=== PATIENT | female | born 1980 | race Hispanic/Latino ===

== ENCOUNTER 2020-12-13 16:49 | Inpatient (IN) | payer OTHER, SELFPAY ==
--- NOTE | 2020-12-13 15:04 | PC.NURSE ---
Pt arrived to ED stating that she was sent to ED to get a blood transfusion by Dr. Woodall. Called charge nurse Shelbie that stated no one had called her and for me to call Jarvis Albert, called Jarvis Klein and was told that she had no call placed to her and to call [facility]. Called [facility] and was told by RN that they were informed that pt was very symptomatic but that no one was going to be there in a bit and for us to check pt into ED. Informed [facility] nurse that pt was able to walk into ED with no help carrying 4 bags and a fountain soda. Pt also denied any symptoms at that time. Pt now in waiting room wanting to know why she is still waiting and why we took back a COVID pt that was SOB before her. Pt on phone with talking loudly with a room full of pts. Stating that we told her she was bad enough to be brought back right way. This was never said to pt. Pt is also stating that we are refusing to call and get orders for pt. Informed pt that we cant just call in orders that a will have to see her.
[2020-12-13 15:12] VITALS: BP 175/77; PULSE 100; RESP 18; TEMP 36.6; O2SAT 100
--- NOTE | 2020-12-13 15:17 | PC.NURSE ---
Pt inquiring about if we are going to wipe down that chair that a COVID + patient sat in. Informed pt that we typically dont do that in between pts. 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 I informed pt that i could call housekeeping if she would like me too. Pt states i guess I will call about this as well
[2020-12-13 15:48] LABS: Hematocrit 25.4 % (37.0-47.0)
[2020-12-13 15:53] LABS: Hemoglobin 6.3 g/dL (12.0-15.0)
--- NOTE | 2020-12-13 15:54 | PC.NURSE ---
lAb called with a critical hemoglobin 6.3
[2020-12-13 16:45] VITALS: BMI 39.9
--- NOTE | 2020-12-13 20:43 | PC.NURSE ---
PAGE OUT TO [employer] [facility]. REQUEST ORDERS FOR PT AT THIS TIME.
[2020-12-13 20:58] VITALS: BP 148/60; PULSE 93; RESP 16; TEMP 36.1; O2SAT 100
[2020-12-13] MEDS: ACETAMINOPHEN 325 MG TABLET 650 MG PO (21:17)
--- NOTE | 2020-12-13 23:31 | PC.NURSE ---
LAB CALLED REGARDING STAT H&H AND PRBCs ORDER. AWAIT RESULTS.
[2020-12-13 23:58] VITALS: BP 130/62; PULSE 83; RESP 16; TEMP 36.8; O2SAT 99
[2020-12-14] VITALS (9 sets, daily range): BP systolic 112–134; BP diastolic 61–72; PULSE 71–77; RESP 16–18; TEMP 36.7–36.9; O2SAT 98–100
[2020-12-14 06:06] LABS: Hematocrit 31.1 % (37.0-47.0); Hemoglobin 8.6 g/dL (12.0-15.0); Mean Corpuscular HGB Conc 27.7 g/dl (32-36); Mean Corpuscular Hemoglobin 18.1 pg (26-34); Mean Corpuscular Volume 65.3 fl (80-100); Mean Platelet Volume 9.6 fl (7.4-10.4); Platelet Count Result 384 k/mm3 (150-375); Red Blood Count 4.76 M/mm3 (4.2-5.4); Red Cell Distribution Width 25.2 % (11.5-14.5); White Blood Count 9.2 K/mm3 (4.5-10.0)
--- NOTE | 2020-12-14 12:14 | PM.IMHP ---
H&P: HPI History of Present Illness Date/Time: 12/14/20 12:14 40y/o A1 with history of menorrhagia. Patient was on progesterone therapy prior. However, patient has not been seen or taken medications since 2019. Patient9 months ago began to have 2 cycles per month lasting for 10 days and were heavy Chief Complaint: fatigue,irregular and heavy bleeding Review of Systems Constitutional: Constitutional: Reports fatigue, Reports headache(s) and Reports lethargy PMFSH Past Medical History Medical History (Updated 12/14/20 @ 12:27 by Phoenix Taylor MD) Anemia Menometrorrhagia Surgical History Surgical History (Updated 12/14/20 @ 12:23 by Phoenix Taylor MD) History of hysteroscopy Family History Family History Mother Diabetes mellitus Hypertension Chronic obstructive pulmonary disease Father Diabetes mellitus Social History Social History Smoking packs per day: 0.5 Smoking cigarettes per day: 10.0 Smoking status: Former smoker Tobacco type: cigarettes Smoking end date: 12/13/20 Alcohol intake: current Drinks per week: 1 Substance use: never Spiritual care concerns: No Meds Home Medications and Allergies Home Medications Medication Instructions Recorded Confirmed Type No Home Medications 12/13/20 12/13/20 History tranexamic acid [Lysteda] 650 mg PO TID #30 tablet 12/14/20 Rx Allergies Allergy/AdvReac Type Severity Reaction Status Date / Time No Known Allergies Allergy Unverified 11/16/16 07:32 Vital Signs Vital Signs - 24 hr 12/13/20 15:12 12/13/20 20:58 12/13/20 23:58 Temperature 36.6 C 36.1 C L 36.8 C Pulse Rate 100 93 83 Respiratory Rate 18 16 16 Blood Pressure 175/77 H 148/60 H 130/62 Pulse Oximetry 100 100 99 12/14/20 00:13 12/14/20 01:13 12/14/20 02:13 Temperature 36.9 C 36.7 C 36.8 C Pulse Rate 76 73 71 Respiratory Rate 18 18 16 Blood Pressure 120/61 134/62 113/64 Pulse Oximetry 100 100 98 12/14/20 02:35 12/14/20 02:51 12/14/20 02:55 Temperature 36.8 C 36.8 C 36.8 C Pulse Rate 71 77 77 Respiratory Rate 16 16 16 Blood Pressure 113/64 112/65 112/65 Pulse Oximetry 98 98 98 12/14/20 03:51 12/14/20 04:51 12/14/20 04:57 Temperature 36.8 C 36.9 C 36.9 C Pulse Rate 75 73 73 Respiratory Rate 16 16 16 Blood Pressure 126/72 125/64 125/64 Pulse Oximetry 100 98 98 Exam Const: General: cooperative Nutritional Appearance: obese Orientation/consciousness: patient oriented x3 Resp: Auscultation: clear to auscultation bilaterally Cardio: Rate: regular rate GI: Inspection: normal to inspection GI Palp: Yes Soft to palpation : External Female Exam: normal external appearance H&P: Results Labs Labs: Short CBC 12/13/20 12/14/20 Range/Units 15:22 05:49 WBC 9.2 (4.5-10.0) K/mm3 Hgb 6.3 L* 8.6 L (12.0-15.0) g/dL Hct 25.4 L 31.1 L (37.0-47.0) % Plt Count 384 H (150-375) k/mm3 Assessment and Plan Assessment and plan (1) Menometrorrhagia: Code(s): N92.1 - Excessive and frequent menstruation with irregular cycle Status: Acute Assessment and Plan: plans pelvic ultrasound and hysteroscopy with endometrial biopsy with Dr. Woodall. will start Lysteda with next cycle. follow up in office in 1 week. d/c home. (2) Anemia: Code(s): D64.9 - Anemia, unspecified Status: Acute Assessment and Plan: s/p 2 units of packed RBCs feels much better. denies bleeding. will continue with iron supplements
== END 2020-12-14 12:20 | disposition home or self-care (01) | DRG 761 ==
PROVIDERS: Emergency Medicine; Admitting Provider Obstetrics & Gynecology Gynecology; PCP Internal Medicine; Visit Provider Obstetrics & Gynecology
DX: N92.1 Excessive and frequent menstruation with irregular cycle (principal); D64.9 Anemia, unspecified; Z87.891 Personal history of nicotine dependence
CPT/HCPCS: 36415; 36430; 85014; 85018; 85027; 86850; 86900; 86901; 86920; A9270; P9016

== ENCOUNTER → 2020-12-17 13:29 | Outpatient (CLI) | payer OTHER, SELFPAY ==
--- NOTE | ~2020-12-17 | US_ITS ---
EXAMINATION: US transvaginal DATE: 12/17/2020 13:59 INDICATION: Excessive and frequent consideration TECHNIQUE: Multiple endovaginal sonographic images of the pelvis were obtained. COMPARISON: None. FINDINGS: The uterus measures 10.5 x 6.1 x 7.4 cm. There is a 3.3 x 2.9 cm hypoechoic mass of the lef t uterus which has the appearance of a subserosal fibroid. The endometrial complex measures 29 mm. Th e left ovary is not visualized however no left adnexal abnormality is seen. The right ovary measures 3.5 x 2.2 x 3.3 cm. There is normal vascular flow in the right ovary. There is no free fluid in the p melinda. IMPRESSION: 1. Endometrial thickening which may be due to hyperplasia, polyp, or malignancy. Endometrial sampling is recommended. Reviewed, dictated and finalized at location B. IMPRESSION: 1. Endometrial thickening which may be due to hyperplasia, polyp, or malignancy . Endometrial sampling is recommended.
== END ==
PROVIDERS: Visit Provider Nurse Practitioner
DX: N92.1 Excessive and frequent menstruation with irregular cycle (principal); R93.89 Abnormal findings on diagnostic imaging of other specified body structures
CPT/HCPCS: 76830

== ENCOUNTER → 2021-02-06 02:53 | Outpatient (CLI) | payer OTHER, SELFPAY ==
[2021-02-06 19:47] LABS: SARS-CoV-2 RNA PCR Negative
== END ==
PROVIDERS: Visit Provider Obstetrics & Gynecology Gynecology
DX: Z01.812 Encounter for preprocedural laboratory examination (principal); Z20.822 Contact with and (suspected) exposure to COVID-19
CPT/HCPCS: C9803; U0003; U0005

== ENCOUNTER 2021-02-10 00:43 | Day surgery (SDC) | payer OTHER, SELFPAY ==
[2021-02-06 09:09] VITALS: BMI 41.1
--- NOTE | 2021-02-06 09:20 | PC.NURSE ---
Report to the Outpatient Waiting Room, entrance under the green pavilion located off [facility], at time 0630 on date 02/10/21. OR Time: 0830. - You and your visitor will be asked a series of questions to screen for COVID 19 for your protection. - A mask is required within the hospital. - Only one visitor is allowed at this time. Patient visitors will be guided where to wait when not with patient. Preoperative COVID Testing Requirements: No COVID Test needed if: (proof is required; if not received patient will have Rapid Test prior to entry) - Patient has received COVID Vaccine at least 14 days prior to procedure date or - Patient has positive COVID test result within last 90 days of surgery date. COVID Test needed if above criteria is not met If not COVID vaccinated a COVID test must be conducted within 72 hours of surgery and patient is asked to isolate self from time of testing until procedure. You will go to the [facility] for your COVID testing. The [facility] is located at the corner of [address] [facility]. COVID TEST 02/06 AT 0730 You will only be called if COVID results are positive and your surgeon may reschedule your elective surgery date. Patients may have clear liquids (water, carbonated beverages, clear teas, apple juice) until 3 hours prior to surgery with a maximum of 20 ounces. - No food from midnight until time of surgery - Infants may have breast milk until 4 hours before surgery, infant formula 6 hours prior to surgery. - Children will be allowed to drink immediately following surgery. If applicable, please bring a bottle or sippy cup to assist with drinking. Juice, water, soda, and popsicles are readily available. For infants on formula, please bring formula the day of surgery. Pacifiers are allowed. Take the following medications with a SIP of water the morning of surgery: NONE Medications to discontinue per physician: VITAMINS/SUPPLEMENTS Date to take last dose: 02/06/21 Please no make-up, nail sri lankan, hairspray, perfume, deodorant, or body powder the day of surgery. No jewelry (including any body piercings) or valuables the day of surgery, leave them at home. Please take a shower or bath the night before, or the morning of, surgery with an antibacterial soap. Wear comfortable, loose fitting clothing. Children are encouraged to wear pajamas. - Jewelry must be removed prior to entering the operating room. Rings and piercings that are not removed may be cut off. - The hospital will not accept responsibility for valuables. - Please leave all valuables, including medications, at home the day of surgery. If you are going home after surgery, a licensed class b driver must drive you home. - NO public transportation without another adult. - We recommend that an adult stay with you for 24 hours following discharge. - We also recommend that you do not drive, make important decision, drink alcoholic beverages, or take any drugs that were not prescribed by your health care provider for at least 24 hours after your discharge time. For Pediatric surgeries, we recommend two adults accompany the child home (only one inside the building at this time). Follow any additional instructions given to you from your surgeon. Telephone instructions given to ANGELA ACOSTA and asked if any additional questions and then verbalized understanding. Patient advised to call surgeon office or pre surgery nurse liaison [phone] if any additional questions.
--- NOTE | 2021-02-10 07:18 | WPDHPUPDATE1 ---
History and Physical Update Update Date/Time: 02/10/21 07:18 History and Physical has been reviewed, including an updated exam of the patient. There are NO changes in the patient's condition. Risks, benefits, and alternatives have been discussed and questions answered. Patient agrees to proceed with procedure.
--- NOTE | 2021-02-10 07:18 | PM.HPGS ---
History of Present Illness History of Present Illness Consent: Risks, benefits, and alternatives have been discussed and questions answered. Patient agrees to proceed with procedure. Chief complaint: metrorrhagia and anemia Narrative: Ame Vaughn is a 40 year old female with prolonged heavy cycles. Patient a similar situation in 2017 and polyps were found. Patient with profound anemia of 6.3 and December 12, 2020. Patient with shortness of breath and lightheadedness and therefore received 2units of packed red blood cells. She was given Lysteda to utilized for cycles until hysteroscopy. It is recommended to proceed with D&C hysteroscopy. Risks of infection, bleeding, perforation, and possible pathology are reviewed. Patient voices understanding and agrees to proceed. Review of Systems Review of Systems: not repeated day of surgery; patient states no changes in status Constitutional: Constitutional: Reports fatigue PMFSH Past Medical History Medical History (Updated 02/10/21 @ 07:23 by Dalia Woodall MD) Anemia Diabetes Elevated cholesterol Menometrorrhagia (normal spontaneous vaginal delivery) x3 Surgical History Surgical History (Updated 02/10/21 @ 07:23 by Dalia Woodall MD) History of hysteroscopy 2016 with polyps History of surgical removal of ganglion cyst Left hand 1994 Family History Family History Mother Diabetes mellitus Hypertension Chronic obstructive pulmonary disease Father Diabetes mellitus Social History Social History Smoking packs per day: 0.75 Smoking cigarettes per day: 15.0 Years smoked: 15 Smoking pack-years: 11.25 Smoking status: Former smoker Tobacco type: cigarettes Smoking end date: 02/15/10 Alcohol intake: never Drinks per week: 1 Substance use: never Substance use type: does not use Living arrangements: with family Spiritual care concerns: No Meds Home Medications and Allergies Home Medications Medication Instructions Recorded Confirmed Type tranexamic acid [Lysteda] 650 mg PO TID #30 tablet 12/14/20 02/06/21 Rx ferrous sulfate [Iron (ferrous 325 mg PO BID 02/06/21 02/06/21 History sulfate)] Allergies Allergy/AdvReac Type Severity Reaction Status Date / Time No Known Allergies Allergy Unverified 02/10/21 07:22 Exam Const: General: healthy appearing and alert Orientation/consciousness: patient oriented x3 Resp: Effort & Inspection: normal respiratory effort Auscultation: clear to auscultation bilaterally Cardio: Rate: regular rate Rhythm: regular rhythm GI: GI Palp: Yes Soft to palpation, No Tenderness to palpation present (GI) and No Palpable mass present : External Female Exam: normal external appearance Speculum Exam - Vagina: normal appearance of the vagina and normal vaginal discharge Speculum Exam - Cervix: normal appearance of the cervix Bimanual exam- vagina & uterus: uterine size normal and consistency normal Bimanual Exam- Adnexa, other: normal adnexae and No adnexal tenderness Neuro: General: patient oriented x3 Assessment and Plan Assessment and plan (1) Menometrorrhagia: Code(s): N92.1 - Excessive and frequent menstruation with irregular cycle Status: Acute Assessment and Plan: Plan is to proceed with D&C hysteroscopy (2) Anemia: Code(s): D64.9 - Anemia, unspecified Status: Acute
[2021-02-10] MEDS: ACETAMINOPHEN 500 MG TABLET 1000 MG PO (07:26)
--- NOTE | 2021-02-10 07:32 | WPDANESEPPF ---
Anes - Initial Pre Proc Eval Procedure: Operation Date: 02/10/21 08:30 Proposed Procedures p Hysteroscopy Dilation and Curettage - Dalia Woodall MD Date/Time: 02/10/21 07:32 Surgeon: Dalia Woodall MD Pre Op Diagnosis: metrorrhagia and anemia Patient Data Age: 40 Gender: F Height: 1.63 m Weight: 108.86 kg Allergies Allergy/AdvReac Type Severity Reaction Status Date / Time No Known Allergies Allergy Unverified 02/10/21 07:22 Home Medications Medication Instructions Recorded Confirmed Type tranexamic acid [Lysteda] 650 mg PO TID #30 tablet 12/14/20 02/06/21 Rx ferrous sulfate [Iron (ferrous 325 mg PO BID 02/06/21 02/10/21 History sulfate)] Patient hx anesthesia problems: none Family hx anesthesia problems: none Results Review: All pre-operative results and documents have been reviewed as part of the pre-operative evaluation. PMFSH Past Medical History Medical History Anemia Diabetes Elevated cholesterol Menometrorrhagia (normal spontaneous vaginal delivery) x3 Surgical History Surgical History History of hysteroscopy 2017 with polyps History of surgical removal of ganglion cyst Left hand 1994 Family History Family History Mother Diabetes mellitus Hypertension Chronic obstructive pulmonary disease Father Diabetes mellitus Social History Social History Smoking packs per day: 0.75 Smoking cigarettes per day: 15.0 Years smoked: 15 Smoking pack-years: 11.25 Smoking status: Former smoker Tobacco type: cigarettes Smoking end date: 02/15/10 Alcohol intake: never Drinks per week: 1 Substance use: never Substance use type: does not use Living arrangements: with family Spiritual care concerns: No Anes - Eval Final PreProcedure Day of Procedure 02/10/21 07:32 Patient weight: morbidly obese Heart: regular rate and rhythm Lungs: clear to auscultation Airway: Mallampati scale class II Neurological: alert and oriented Last oral intake: >/= 8 hours ASA classification: III Emergent: no Anesthetic plan: proceed Anesthesia type and monitoring: general GIVS and standard monitoring Results Review: All pre-operative results and documents have been reviewed as part of the pre-operative evaluation. Informed Consent: The patient's anesthetic plan and its attendant risks and benefits were discussed with the patient/family/POA. Questions were solicited and answers provided to the satisfaction of the patient/family/POA.
[2021-02-10] MEDS: LACTATED RINGERS 1,000 ML 30 ML IV CONT (07:35)
[2021-02-10 07:39] VITALS: BP 147/89; PULSE 92; TEMP 36.1; O2SAT 97
[2021-02-10 07:44] LABS: Hematocrit 42.2 % (37.0-47.0); Hemoglobin 13.2 g/dL (12.0-15.0)
[2021-02-10] MEDS: KETOROLAC 30 MG/ML VIAL (*BKC) IV PUSH (08:33)
--- NOTE | 2021-02-10 08:40 | W.PM.PROC2 ---
Procedure Note - Detailed Date of Procedure 02/10/21 Pre-op Diagnosis metrorrhagia and anemia Post-op Diagnosis same Procedure Performed D&C hysteroscopy Surgeon Dalia Woodall MD Anesthesia MAC and local Findings Uterus sounds to 10cm and appears grossly normal Description of Procedure The patient was taken to the operating room and placed under anesthesia in the dorsal lithotomy position. She was prepped and draped in usual sterile fashion. [place] speculum was placed in the vagina and the cervix is grasped on the anterior lip with a tenaculum. The cervix is injected in each quadrant with lidocaine. The uterus is sounded to 10cm. The cervix is serially dilated to an 8 Hegar. The diagnostic hysteroscope was placed with no abnormalities noted. The hysteroscope was removed. The medium sharp curette is used to sharply curette the endometrium until a good uterine cry was noted in all areas. Moderate amount of material was obtained. All instruments are removed. Sponge, needle, and instrument counts are correct per the OR staff. Patient is awakened from anesthesia and taken to recovery in stable condition. Estimated Blood Loss 5 Drains No Packing No Pathology yes (Endometrial curettings) Complications No immediate complications Condition stable Disposition PACU
[2021-02-10 08:50] VITALS: BP 112/70; PULSE 88; RESP 16; O2SAT 92
[2021-02-10 09:25] VITALS: BP 110/69; PULSE 74; RESP 14
== END 2021-02-10 09:40 | disposition home or self-care (01) ==
PROVIDERS: PCP Internal Medicine; Visit Provider Obstetrics & Gynecology Gynecology
PROC: 0U5B8ZZ Destruction of Endometrium, Via Natural or Artificial Opening Endoscopic (ICD-10-PCS; CPT 58563; principal; 2021-02-10 08:30)
DX: N92.0 Excessive and frequent menstruation with regular cycle (principal); D64.9 Anemia, unspecified; E11.9 Type 2 diabetes mellitus without complications; E78.00 Pure hypercholesterolemia, unspecified; Z87.891 Personal history of nicotine dependence; E66.01 Morbid (severe) obesity due to excess calories; Z68.41 Body mass index [BMI] 40.0-44.9, adult
CPT/HCPCS: 58558; 36415; 85014; 85018; 88305; A9270; C9803; J1885; J2250; J2704; J3010; J7030; J7120; U0003; U0005

== ENCOUNTER 2021-03-25 12:31 | Outpatient (CLI) | payer OTHER, SELFPAY ==
[2021-03-25 13:22] LABS: Hematocrit 38.9 % (37.0-47.0); Hemoglobin 12.8 g/dL (12.0-15.0); Mean Corpuscular HGB Conc 32.9 g/dl (32-36); Mean Corpuscular Hemoglobin 26.4 pg (26-34); Mean Corpuscular Volume 80.2 fl (80-100); Mean Platelet Volume 10.7 fl (7.4-10.4); Platelet Count Result 298 k/mm3 (150-375); Red Blood Count 4.85 M/mm3 (4.2-5.4); Red Cell Distribution Width 14.3 % (11.5-14.5); White Blood Count 12.4 K/mm3 (4.5-10.0)
== END 2021-03-25 12:32 | disposition home or self-care (01) ==
LOC: ANHLAB 12:34
PROVIDERS: PCP Internal Medicine; Visit Provider Obstetrics & Gynecology Gynecology
DX: N92.0 Excessive and frequent menstruation with regular cycle (principal)
CPT/HCPCS: 36415; 85027

== ENCOUNTER → 2021-04-07 10:14 | Outpatient (CLI) | payer OTHER, SELFPAY ==
--- NOTE | ~2021-04-07 | MM_ITS ---
EXAMINATION: MM screening candida BI w anyi HISTORY: Screening mammogram; baseline examination TECHNIQUE: Craniocaudal and mediolateral oblique 3-D tomosynthesis images were obtained and synthetic 2-D images were generated. CAD analysis was submitted and interpreted. COMPARISON: No prior mammogram is available for comparison at this institution. BREAST PARENCHYMAL COMPOSITION: The breasts are heterogeneously dense, which may obscure small masses . FINDINGS: There is no evidence of suspicious mass, calcification, or architectural distortion to sugg est malignancy in either breast. There has been no suspicious interval change. IMPRESSION: 1. No mammographic evidence of malignancy. 2. Recommend routine screening mammography in one year. BI-RADS Category 1: Negative Reviewed, dictated and finalized at location A. LE GRADER
== END ==
PROVIDERS: Visit Provider Nurse Practitioner
DX: Z12.31 Encounter for screening mammogram for malignant neoplasm of breast (principal)
CPT/HCPCS: 77063; 77067

== ENCOUNTER 2023-08-25 13:18 | Outpatient (CLI) | payer OTHER, SELFPAY ==
--- NOTE | 2023-08-25 13:32 | ECG_ITS ---
Test Date: 2023-08-25 13:45:43 Measurements Intervals Samson Rate: 84 P: 23 NM: 161 QRS: -16 QRSD: 89 T: 5 QT: 356 QTc: 421 Interpretive Statements SINUS RHYTHM BORDERLINE R WAVE PROGRESSION, ANTERIOR LEADS BORDERLINE T WAVE ABNORMALITY- ANT/INF LEADS BASELINE ARTIFACT- I, II, III, AVR, AVL, AVF BORDERLINE ECG No previous ECG available for comparison Electronically Signed On 08-25-2023 14:24:49 CDT by Jitendra Hale D.O.
[2023-08-25 14:14] LABS: Anion Gap 9 mmol/L (4-12); Blood Urea Nitrogen 10 mg/dL (7-17); Calcium 8.8 mg/dL (8.4-10.2); Carbon Dioxide 27 mmol/L (22-30); Chloride 103 mmol/L (98-107); Estimated Glomerular Filt Rate > 60; Glucose 157 mg/dL (65-110); Potassium 3.9 mmol/L (3.4-5.0); Sodium 139 mmol/L (137-145)
[2023-08-25 14:33] LABS: Hemoglobin 6.9 g/dL (12.0-15.0)
== END 2023-08-25 13:19 | disposition home or self-care (01) ==
PROVIDERS: Anesthesiology; PCP Emergency Medicine; Visit Provider Obstetrics & Gynecology Gynecology
DX: Z01.818 Encounter for other preprocedural examination (principal); N92.1 Excessive and frequent menstruation with irregular cycle; D64.9 Anemia, unspecified; E11.9 Type 2 diabetes mellitus without complications
CPT/HCPCS: 36415; 80048; 85014; 85018; 93005

== ENCOUNTER 2023-08-25 16:41 | Outpatient (CLI) | payer OTHER, SELFPAY | END 2023-08-25 16:42 | disposition home or self-care (01) | LOC: ANHLAB 16:44 | PROVIDERS: PCP Emergency Medicine; Visit Provider Obstetrics & Gynecology Gynecology | DX: R71.0 Precipitous drop in hematocrit (principal) | CPT/HCPCS: 36415; 80048; 85014; 85018; 86850; 86900; 86901; 93005 ==

== ENCOUNTER 2023-08-26 11:34 | Outpatient (RCR) | payer OTHER, SELFPAY ==
[2023-08-26] VITALS (8 sets, daily range): BP systolic 120–133; BP diastolic 57–77; PULSE 71–86; RESP 18–20; TEMP 36.5–37.2; O2SAT 98–100
== END 2023-11-24 23:59 | disposition home or self-care (01) ==
LOC: ANHCPCTRAN 11:34
PROVIDERS: PCP Emergency Medicine; Visit Provider Obstetrics & Gynecology Gynecology
DX: D50.9 Iron deficiency anemia, unspecified (principal)
CPT/HCPCS: 36415; 36430; 86923; J7050; P9016

== ENCOUNTER 2023-08-30 11:50 | Inpatient (IN) | payer OTHER, SELFPAY ==
[2023-08-20 11:18] VITALS: BMI 39.5
--- NOTE | 2023-08-20 11:28 | PC.NURSE ---
Report to the Outpatient Waiting Room, entrance under the green pavilion located off [facility], at time _0700_ on date _[id number]_. Planned Procedure Time: _0900_. Time changes happen often and if your time is changed the preop area will call you the afternoon before. - You and your visitor will be asked to self-screen and do not enter if you have any COVID symptoms. - A mask is optional within the hospital at this time. Patients may have clear liquids (water, carbonated beverages, clear teas, apple juice) until 3 hours prior to surgery with a maximum of 20 ounces. - No food from midnight until time of surgery Take the following medications with a SIP of water the morning of surgery: _None DO NOT STOP ANY OF YOUR OTHER PRESCRIPTION MEDICATIONS PRIOR TO SURGERY ?EXCEPT THE FOLLOWING Medications to discontinue per physician ____None Please ask Dr Woodall's office if Advil ok to take up to surgery. Date to take last dose Please no make-up, nail french, hairspray, perfume, deodorant, or body powder the day of surgery. No jewelry (including any body piercings) or valuables the day of surgery, leave them at home. Please take a shower or bath the night before, or the morning of, surgery with an antibacterial soap. Wear comfortable, loose fitting clothing. - Jewelry must be removed prior to entering the operating room. Rings and piercings that are not removed may be cut off. - The hospital will not accept responsibility for valuables. - Please leave all valuables, including medications, at home the day of surgery. If you are going home after surgery, a licensed otr van cdl truck driver must drive you home. - NO public transportation without another adult if you receive anesthesia. - We recommend that an adult stay with you for 24 hours following discharge. - We also recommend that you do not drive, make important decision, drink alcoholic beverages, or take any drugs that were not prescribed by your health care provider for at least 24 hours after your discharge time. Follow any additional instructions given to you from your surgeon. If you or anyone in your household have experienced Covid symptoms in the past week, please notify your surgeon or the nurse liaison at the phone number below for possible testing. Telephone instructions given to __Ame___and asked if any additional questions and then verbalized understanding. Patient advised to call surgeon office or pre surgery nurse liaison [phone] if any additional questions.
[2023-08-30] VITALS (21 sets, daily range): BP systolic 141–168; BP diastolic 58–82; PULSE 69–84; RESP 14–24; TEMP 35.8–37.2; O2SAT 91–100
[2023-08-30] MEDS: ACETAMINOPHEN 500 MG TABLET 1000 MG PO (06:18)
[2023-08-30] MEDS: LACTATED RINGERS 1,000 ML 30 ML IV CONT ×2 (06:25→09:53)
[2023-08-30] MEDS: KETOROLAC 15 MG/ML VIAL (*BKC) IV PUSH (06:28)
[2023-08-30 06:36] LABS: Glucose Point of Care 121 mg/dl (65-105)
--- NOTE | 2023-08-30 07:05 | WPDHPUPDATE1 ---
History and Physical Update Update Date/Time: 08/30/23 07:05 History and Physical has been reviewed, including an updated exam of the patient. There are NO changes in the patient's condition. Risks, benefits, and alternatives have been discussed and questions answered. Patient agrees to proceed with procedure.
--- NOTE | 2023-08-30 07:06 | PM.IMHP ---
H&P: HPI History of Present Illness Date/Time: 08/30/23 07:06 Chief Complaint: Menorrhagia with anemia Narrative: The patient is a 43 year old with chronic menorrhagia with anemia and fibroids. Patient was originally scheduled for hysterectomy last summer. Due to uncontrolled diabetes the surgery was canceled. Patient rescheduled after medical clearance was obtained. The patient has had several transfusions due to the anemia. Risks of infection, bleeding, injury to internal organs ( bowel, bladder, ureters, ovaries), DVT, and anesthesia are reviewed. The patient voiced understanding and agrees to proceed. Review of Systems Review of Systems: not repeated day of surgery; patient states no changes in status PMFSH Past Medical History Medical History (Updated 08/30/23 @ 07:13 by Dalia Woodall MD) Anemia Diabetes Elevated cholesterol Menometrorrhagia (normal spontaneous vaginal delivery) x3 Surgical History Surgical History (Updated 08/30/23 @ 07:12 by Dalia Woodall MD) History of hysteroscopy 2016 with polyps, 2020 History of surgical removal of ganglion cyst Left hand 1994 Family History Family History Mother Diabetes mellitus Hypertension Chronic obstructive pulmonary disease Father Diabetes mellitus Social History Social History Smoking packs per day: 0.75 Smoking cigarettes per day: 15.0 Years smoked: 15 Smoking pack-years: 11.25 Smoking status: Former smoker Tobacco type: cigarettes Smoking end date: 02/15/10 Alcohol intake: never Drinks per week: 1 Substance use: never Substance use type: does not use Living arrangements: with family Gender identity (if verbalized by the patient): Female Sexual Orientation (if Verbalized by the Patient): Straight or Heterosexual Spiritual care concerns: No Meds Home Medications and Allergies Home Medications Medication Instructions Recorded Confirmed Type ferrous sulfate 325 mg (65 mg 325 mg PO BID 02/06/21 08/30/23 History iron) tablet (Iron (ferrous sulfate)) ibuprofen 200 mg tablet (Advil) 400 mg PO Q6H PRN Pain 08/20/23 08/20/23 History metformin 500 mg tablet 500 mg PO BID 08/20/23 08/30/23 History progesterone micronized 100 mg 200 mg PO HS 08/20/23 08/30/23 History capsule sitagliptin phosphate 50 mg tablet 50 mg PO HS 08/20/23 08/30/23 History (Mary) Allergies Allergy/AdvReac Type Severity Reaction Status Date / Time No Known Allergies Allergy Verified 08/30/23 06:03 Exam Const: General: healthy appearing and alert Orientation/consciousness: patient oriented x3 Resp: Effort & Inspection: normal respiratory effort GI: GI Palp: Yes Soft to palpation, No Tenderness to palpation present (GI) and No Palpable mass present : External Female Exam: normal external appearance Speculum Exam - Vagina: normal appearance of the vagina and normal vaginal discharge Speculum Exam - Cervix: normal appearance of the cervix Bimanual exam- vagina & uterus: enlarged Bimanual Exam- Adnexa, other: normal adnexae and No adnexal tenderness Neuro: General: patient oriented x3 Assessment and Plan Assessment and plan (1) Menometrorrhagia: Code(s): N92.1 - Excessive and frequent menstruation with irregular cycle Status: Acute Assessment and Plan: plan to proceed with total abdominal hysterectomy and bilateral salpingectomy (2) Anemia: Code(s): D64.9 - Anemia, unspecified Status: Acute (3) Fibroids: Code(s): D21.9 - Benign neoplasm of connective and other soft tissue, unspecified Status: Acute
--- NOTE | 2023-08-30 07:17 | WPDANESEPPF ---
Anes - Initial Pre Proc Eval Procedure: Operation Date: 08/30/23 07:30 Proposed Procedures p Total Abdominal Hysterectomy with Bilateral Salpingectomy - Dalia Woodall MD Date/Time: 08/30/23 07:17 Surgeon: Dalia Woodall MD Pre Op Diagnosis: menorrhagia Patient Data Age: 43 Gender: F Height: 1.63 m Weight: 104.5 kg Allergies Allergy/AdvReac Type Severity Reaction Status Date / Time No Known Allergies Allergy Verified 08/30/23 06:03 Home Medications Medication Instructions Recorded Confirmed Type ferrous sulfate 325 mg (65 mg 325 mg PO BID 02/06/21 08/30/23 History iron) tablet (Iron (ferrous sulfate)) ibuprofen 200 mg tablet (Advil) 400 mg PO Q6H PRN Pain 08/20/23 08/20/23 History metformin 500 mg tablet 500 mg PO BID 08/20/23 08/30/23 History progesterone micronized 100 mg 200 mg PO HS 08/20/23 08/30/23 History capsule sitagliptin phosphate 50 mg tablet 50 mg PO HS 08/20/23 08/30/23 History (Januvia) Laboratory Tests 08/30/23 08/30/23 06:20 06:31 POC Capillary Glucose 121 H mg/dl (65-105) Blood Type O Positive Antibody Screen Pending Patient hx anesthesia problems: none Family hx anesthesia problems: none Results Review: All pre-operative results and documents have been reviewed as part of the pre-operative evaluation. PMFSH Past Medical History Medical History (Updated 08/30/23 @ 07:13 by Dalia Woodall MD) Anemia Diabetes Elevated cholesterol Menometrorrhagia (normal spontaneous vaginal delivery) x3 Surgical History Surgical History (Updated 08/30/23 @ 07:12 by Dalia Woodall MD) History of hysteroscopy 2016 with polyps, 2020 History of surgical removal of ganglion cyst Left hand 1994 Family History Family History Mother Diabetes mellitus Hypertension Chronic obstructive pulmonary disease Father Diabetes mellitus Social History Social History Smoking packs per day: 0.75 Smoking cigarettes per day: 15.0 Years smoked: 15 Smoking pack-years: 11.25 Smoking status: Former smoker Tobacco type: cigarettes Smoking end date: 02/15/10 Alcohol intake: never Drinks per week: 1 Substance use: never Substance use type: does not use Living arrangements: with family Gender identity (if verbalized by the patient): Female Sexual Orientation (if Verbalized by the Patient): Straight or Heterosexual Spiritual care concerns: No Anes - Eval Final PreProcedure Day of Procedure 08/30/23 07:17 Patient weight: morbidly obese Heart: regular rate and rhythm Lungs: clear to auscultation Airway: Mallampati scale class III Neurological: alert and oriented Last oral intake: >/= 8 hours ASA classification: III Emergent: no Anesthetic plan: proceed Anesthesia type and monitoring: general ETT and standard monitoring Results Review: All pre-operative results and documents have been reviewed as part of the pre-operative evaluation. Informed Consent: The patient's anesthetic plan and its attendant risks and benefits were discussed with the patient/family/POA. Questions were solicited and answers provided to the satisfaction of the patient/family/POA.
[2023-08-30] MEDS: ceFAZolin 2 GM/D5W 50 ML 2 GM/50 ML BAG IVPB (07:30)
[2023-08-30 08:14] LABS: Hematocrit 29.4 % (37.0-47.0); Hemoglobin 8.1 g/dL (12.0-15.0)
--- NOTE | 2023-08-30 08:27 | SUR.OPER ---
STAT H&H RELAYED TO SURGEON AND ANESTHESIA 8.1 & 29.4 VERBAL ACKNOWLEDGEMENT RECEIVED.
[2023-08-30 10:06] LABS: Glucose Point of Care 211 mg/dl (65-105)
[2023-08-30] MEDS: fentaNYL CITRATE INJ (*CRX) 100 MCG/2 ML VIAL 25 MCG IV PUSH ×8 (10:07→10:49)
--- NOTE | 2023-08-30 10:07 | W.PM.PROC2 ---
Procedure Note - Detailed Date of Procedure 08/30/23 Pre-op Diagnosis menorrhagiawith anemia fibroid uterus Post-op Diagnosis Same Procedure Performed total abdominal hysterectomy with bilateral salpingectomy Surgeon Dalia Woodall MD Anesthesia General Findings enlarge fibroid uterus, normal-appearing tubes and ovaries Description of Procedure The patient is taken to the operating room placed under anesthesia in the dorsal supine position. She was prepped and draped the usual sterile fashion. Pfannenstiel skin incision was made with a scalpel and carried down to the underlying layer of fascia which was nicked in the midline and extended laterally. Ochsner was used to tent the fascia which was then dissected off using sharp and blunt dissection. The rectus muscles were in the midline and the peritoneum tented entered with Metzenbaum scissors. The incision was extended with blunt traction. The bowel was packed away using moist laparotomy sponges and the Lutts is placed with a flexible center blade. The uterus is grasped on the cornu with large Peon. The round ligaments were doubly ligated with 0 Vicryl, transected, and the anterior leaf of the broad ligament incised with Metzenbaum scissors. Due to the large fibroids anteriorly the visualization was poor. The peons were removed and the uterus pushed cephalad. The bladder flap was then able to be visualized and created. The Metzenbaum were used to sharply dissect the midline and the sponge stick used to bluntly dissect the bladder off of the lower uterine segment and cervix. Due to the large with the width of fibroid uterus, only 1 Peon was placed at a time and the specimen rotated side to side. A window was created in the posterior leaf of the broad ligament and the utero-ovarian ligament doubly clamped, transected, and suture ligated with 0 Vicryl. The uterine vessels are skeletonized doubly clamped, transected, and suture ligated with 0 Vicryl. Once both uterine vessels have been ligated, the specimen was able to be delivered through the incision. A peon was placed then on each cornua. The cardinal and uterosacral ligaments were serially clamped, transected, and suture ligated with 0 Vicryl. The vaginal cuff was entered anteriorly with the scalpel and the specimen amputated. There is a fibroid located in the cervix. This is grasped after the specimen is removed and excised using Sadie scissors. The vaginal cuff was then closed using 0 Vicryl in a running locked fashion. The left tube was grasped with a Sudhir, the meso salpinx is clamped using a minimally curved Z clamp, the tube was excised, and the pedicle tied off using 0 Vicryl. The identical procedure was performed on the right tube. There was some bleeding noted in the tissue between the bladder flap and the cuff. This is sutured with 0 Vicryl in a Claudia stitch for good hemostasis. The pelvis was then irrigated and noted to be hemostatic. The bladder flap is very oozy and Surgicel powder is placed. The area was observed and no further bleeding is noted. The sponges and retractors are removed. The fascia was then closed using 0 Vicryl in a running fashion. Subcutaneous tissues irrigated made hemostatic using Bovie cautery. The skin is closed using 4 0 Vicryl in a subcuticular fashion. Dermaflex was placed over the incision.Sponge, needle, and instrument counts are correct per the OR staff. The patient was awakened from anesthesia. The patient is taken to recovery in stable condition. Estimated Blood Loss 800 Drains Yes ( Garrett catheter) Packing No Pathology Yes ( uterus and tubes) Complications No immediate complications Condition Stable Disposition PACU
--- NOTE | 2023-08-30 10:15 | PM.DS ---
DS: Admitting Diagnosis Discharge Date 09/01/23 Admitting Diagnosis fibroid uterus with menorrhagia and anemia DS: Discharge Diagnosis Discharge Diagnosis (1) Status post total abdominal hysterectomy: Code(s): Z90.710 - Acquired absence of both cervix and uterus Status: Acute DS: Summary Hospital Course Hospital Course: At the time of discharge, the patient was tolerating regular diet, voiding, and ambulating without difficulty. She will be discharged to continue on iron for 2 months due to chronic anemia. Status at Discharge Functional status at discharge: independent ambulation Overall status at discharge: patient is progressing back to baseline Time Spent with Patient Time attestation: Total time spent providing and/or coordinating discharge services: DS: Data Data Completed and Pending Pending studies at discharge: Pending at discharge 08/30/23 09:15 Surgical [PTH] Routine Labs on day of discharge: Labs from last 24 hours 08/30/23 08/30/23 08/30/23 10:01 08:01 06:31 Hgb 8.1 L Hct 29.4 L POC Capillary Glucose 211 H 121 H Blood Type Antibody Screen 08/30/23 06:20 Hgb Hct POC Capillary Glucose Blood Type O Positive Antibody Screen Negative Discharge Plan Discharge Attending physician on discharge: Dalia Woodall Discharging Clinician: Dalia Woodall Anticipated Discharge Date/Time: 09/01/23 07:31 Patient Disposition: Home, Self-Care Activity: may shower and pelvic rest Diet: regular Wound Care Instructions: incision open to air Stand Alone Forms: General Discharge Instructions Follow-up/Referrals: Dalia Woodall MD [Physician] - 1 Week (and 6 wk) Discharge Medications: Continued ferrous sulfate [Iron (ferrous sulfate)] 325 mg (65 mg iron) Tablet 325 mg PO BID metformin 500 mg tablet 500 mg PO BID ibuprofen [Advil] 200 mg Tablet 400 mg PO Q6H PRN (Reason: Pain) Januvia 50 mg tablet 50 mg PO HS Discontinued progesterone micronized 100 mg capsule 200 mg PO HS Date of admission: 08/30/23 11:50 Primary Care Provider: Sofia,Mirtha Holbrook Admitting Provider: Dalia Woodall Attending physician on admission: Dalia Woodall Condition: Stable
[2023-08-30] MEDS: ONDANSETRON INJ 4 MG/2 ML VIAL IV PUSH ×2 (10:53→18:24)
--- NOTE | 2023-08-30 11:56 | OBPPTRN ---
Patient transferred to post room #288 via bed. Support person present. Oriented to unit, room, information board, rooming in, admission packet and security measures. Patient verbalizes understanding.
[2023-08-30] MEDS: HYDROcodone/acetaminophen (*CRX) 10-325 MG TABLET 1 TAB PO (12:28)
[2023-08-30] MEDS: SIMETHICONE 80 MG TAB.CHEW PO ×2 (12:28→17:01)
[2023-08-30] MEDS: DEXTROSE 5%/LACTATED RINGERS 1,000 ML 125 ML IV CONT (12:28)
[2023-08-30] MEDS: METOCLOPRAMIDE HCL INJ 10 MG/2 ML VIAL IV PUSH (13:06)
[2023-08-30] MEDS: FENTANYL 600MCG/NS30MLPCA(*CRX 600 MCG/30 ML PCA.VIAL IV CONT (13:53)
[2023-08-30] MEDS: FERROUS SULFATE 325 MG TABLET DR BY MOUTH (17:01)
[2023-08-30] MEDS: metFORMIN HCL 500 MG TABLET PO (17:01)
[2023-08-30] MEDS: DEXTROSE 5%/LACTATED RINGERS 1,000 ML 1000 ML IV CONT (20:26)
[2023-08-31] VITALS: BP 138/76; PULSE 84; RESP 17; TEMP 37.7; O2SAT 96
[2023-08-31 02:00] VITALS: PULSE 85; RESP 16; O2SAT 97
[2023-08-31 04:09] VITALS: BP 140/67; PULSE 83; RESP 16; TEMP 37.6; O2SAT 97
[2023-08-31] MEDS: HYDROcodone/acetaminophen (*CRX) 10-325 MG TABLET 1 TAB PO ×4 (04:20→14:51)
[2023-08-31 05:44] LABS: Basophils Percent Auto 0.2 % (0.2-1.2); Hematocrit 26.7 % (37.0-47.0); Hemoglobin 7.3 g/dL (12.0-15.0); Immature Granulocyte Absolute 0.11 K/mm3 (0.00-0.031); Immature Granulocyte Percent A 0.6 % (0-0.5); Immature Platelet Fraction Pct 5.7 % (0.9-11.2); Lymphocytes Absolute Auto 1.67 K/mm3 (0.9-3.2); Lymphocytes Percent Auto 9.2 % (18.3-44.2); Mean Corpuscular HGB Conc 27.3 g/dl (32-36); Mean Corpuscular Hemoglobin 18.3 pg (26-34); Mean Corpuscular Volume 66.8 fl (80-100); Mean Platelet Volume 10.6 fl (7.4-10.4); Monocytes Absolute Auto 1.2 K/mm3 (0.1-0.6); Monocytes Percent Auto 6.4 % (2.6-8.5); Neutrophils Absolute Auto 15.2 K/mm3 (1.3-6.7); Neutrophils Percent Auto 83.6 % (45.5-73.1); Platelet Count Result 329 k/mm3 (150-375); Red Cell Distribution Width 27.3 % (11.5-14.5); White Blood Count 18.1 K/mm3 (4.5-10.0)
[2023-08-31 06:12] LABS: Platelet Estimate Adequate (Adequate)
[2023-08-31 06:13] LABS: Anisocytosis 2+; Hypochromasia 2+; Microcytosis 2+ (NORMAL); Schistocytes None Seen
[2023-08-31 06:15] VITALS: PULSE 82; RESP 16; O2SAT 98
[2023-08-31] MEDS: KETOROLAC 30 MG/ML VIAL (*BKC) IV PUSH ×3 (06:38→21:13)
[2023-08-31] MEDS: SIMETHICONE 80 MG TAB.CHEW PO ×3 (06:38→17:32)
[2023-08-31 07:40] VITALS: BP 117/58; PULSE 71; RESP 16; TEMP 36.4; O2SAT 100
--- NOTE | 2023-08-31 07:45 | PM.GYNPNOP ---
SALES APPOINTMENT COORDINATOR - A/P Postoperative Procedures: Procedures Operation Date: 08/30/23 07:30 Actual Procedure Side Surgeon p Total Abdominal Hysterectomy with Bilateral Salpingectomy Bilateral Dalia Woodall MD Postoperative day: 1 Postoperative status: doing well Postoperative plan: routine post-op care Time Spent With Patient Time: Total time spent is greater than 50% in coordination of care (as documented) at patient's floor/unit and/or counseling patient: Time with patient: less than 15 minutes SALES APPOINTMENT COORDINATOR- PN:Subj Post-Op Subjective Date/time seen: 08/31/23 07:45 Subjective: patient reports feeling better (nausea from anesthesia resolved) and pain is well controlled Exam Narrative: inc c/d/i abdomen soft, nt SALES APPOINTMENT COORDINATOR - PN: Obj Data Vital Signs Vital Signs: Vital Signs - 24 hr 08/30/23 09:53 08/30/23 10:20 08/30/23 10:35 Temperature 97.9 F Pulse Rate 84 78 75 Respiratory Rate 14 20 22 H Blood Pressure 161/77 H 166/74 H 163/71 H Pulse Oximetry 98 98 98 Oxygen Delivery Simple Face Mask Simple Face Mask Room Air Oxygen Flow Rate 6 6 08/30/23 10:05 08/30/23 10:50 08/30/23 11:05 Temperature Pulse Rate 80 74 75 Respiratory Rate 22 H 22 H 22 H Blood Pressure 165/76 H 156/73 H 145/68 H Pulse Oximetry 99 91 92 Oxygen Delivery Simple Face Mask Room Air Room Air Oxygen Flow Rate 6 08/30/23 11:20 08/30/23 11:35 08/30/23 12:00 Temperature 97.0 F L 97 F L Pulse Rate 75 71 72 Respiratory Rate 20 20 18 Blood Pressure 141/73 H 142/71 H 141/64 H Pulse Oximetry 92 96 97 Oxygen Delivery Room Air Room Air Oxygen Flow Rate 08/30/23 13:53 08/30/23 14:50 08/30/23 15:04 Temperature 97.2 F L Pulse Rate 69 Respiratory Rate 24 H 20 20 Blood Pressure 148/77 H Pulse Oximetry 97 98 98 Oxygen Delivery Oxygen Flow Rate 08/30/23 15:55 08/30/23 15:56 08/30/23 17:02 Temperature 98.1 F Pulse Rate 72 Respiratory Rate 20 20 18 Blood Pressure 168/82 H Pulse Oximetry 98 98 98 Oxygen Delivery Oxygen Flow Rate 08/30/23 17:03 08/30/23 17:59 08/30/23 18:00 Temperature 98.6 F 97 F L Pulse Rate 74 71 Respiratory Rate 18 20 20 Blood Pressure 145/81 H 164/71 H Pulse Oximetry 98 100 100 Oxygen Delivery Oxygen Flow Rate 08/30/23 20:00 08/30/23 22:00 08/31/23 00:00 Temperature 99.0 F 99.9 F H Pulse Rate 72 70 84 Respiratory Rate 16 16 17 Blood Pressure 154/58 H 138/76 Pulse Oximetry 98 98 96 Oxygen Delivery Oxygen Flow Rate 08/31/23 02:00 08/31/23 04:09 08/31/23 06:15 Temperature 99.6 F Pulse Rate 85 83 82 Respiratory Rate 16 16 16 Blood Pressure 140/67 Pulse Oximetry 97 97 98 Oxygen Delivery Oxygen Flow Rate 08/31/23 06:15 08/31/23 06:40 Temperature Pulse Rate Respiratory Rate 16 Blood Pressure Pulse Oximetry 98 Oxygen Delivery Room Air Oxygen Flow Rate Intake/Output Intake/Output: Intake & Output 08/28/23 08/29/23 08/30/23 08/31/23 23:59 23:59 23:59 23:59 Intake Total 2494.7 1020.30 Output Total 3200 2300 Balance -705.3 -1279.70 Meds/Results Medications: Active Medications Generic Name Dose Route Start Last Admin Trade Name Freq PRN Reason Stop Dose Admin Hydrocodone Bitart/Acetaminophen 1 tab 08/30/23 11:50 08/31/23 04:20 Hydrocodone/Acetaminophen (*Crx) 10-325 Mg Tablet PO 1 tab Q3H PRN Administration Pain Rated 6 or Greater Hydrocodone Bitart/Acetaminophen 1 tab 08/30/23 11:50 Hydrocodone/Acetaminophen (*Crx) 5-325 Mg Tablet PO Q3H PRN Pain Rated 5 or Less Ferrous Sulfate 325 mg 08/30/23 17:00 08/30/23 17:01 Ferrous Sulfate [address] BY MOUTH 325 mg BID ASTRID Administration Dextrose/Lactated Ringer's 1,000 mls @ 125 mls/hr 08/30/23 11:50 08/31/23 02:58 Dextrose 5%/Lactated Ringers IV CONT Infused .Q8H ASTRID Infusion Fentanyl Citrate 600 mcg in 30 mls @ 0.5 mls/hr 08/30/23 11:50 08/31/23 06:20 Fentanyl 600 Mcg/Ns 30 Ml Cinder Block Maker
[2023-08-31] MEDS: FERROUS SULFATE 325 MG TABLET DR BY MOUTH ×2 (07:46→17:32)
[2023-08-31] MEDS: metFORMIN HCL 500 MG TABLET PO ×2 (07:46→17:32)
--- NOTE | 2023-08-31 11:08 | P.PNAN_ITS ---
Anes - Prog Note Post-Op Date/Time: 08/31/23 11:08 Cardiovascular status: normal Respiratory status: normal Airway patency: baseline Mental status: baseline Post-Op hydration status: normal Vital Signs: Last Vital Signs Temp 36.4 C 08/31/23 07:40 Pulse 71 08/31/23 07:40 Resp 16 08/31/23 07:40 BP 117/58 L 08/31/23 07:40 Pulse Ox 100 08/31/23 07:40 O2 Del Method Room Air 08/31/23 06:40 O2 Flow Rate 6 08/30/23 10:20 Pain Score (VAS): 05/25 I/O: Intake & Output 08/30/23 08/31/23 08/31/23 23:59 07:59 15:59 Intake Total 1004.7 1500.30 Output Total 1050 2450 Balance -45.3 -949.70 Laboratory Tests 08/31/23 04:10 08/31/23 04:10 WBC 18.1 H RBC 4.00 L Hgb 7.3 L Hct 26.7 L MCV 66.8 L MCH 18.3 L MCHC 27.3 L RDW 27.3 H Plt Count 329 MPV 10.6 H Immature Gran % (Auto) 0.6 H Neut % (Auto) 83.6 H Lymph % (Auto) 9.2 L [place] % (Auto) 6.4 Eos % (Auto) 0.0 Baso % (Auto) 0.2 Lymph # (Auto) 1.67 [place] # (Auto) 1.2 H Eos # (Auto) 0.0 Baso # (Auto) 0.0 Abs Immat Gran (auto) 0.11 H Absolute Neuts (auto) 15.2 H Absolute Nucleated RBC 0.000 Nucleated RBC % 0.0 Platelet Estimate Adequate % Immature Plt Fraction 5.7 Hypochromasia 2+ Anisocytosis 2+ Microcytosis 2+ Schistocytes None seen Post-procedural complaints: nausea Patient Feedback: Patient satisfied with anesthetic care.
[2023-08-31] MEDS: HYDROcodone/acetaminophen (*CRX) 5-325 MG TABLET 1 TAB PO ×2 (17:32→21:14)
[2023-08-31 20:17] VITALS: BP 128/81; PULSE 80; RESP 18; TEMP 36.9; O2SAT 98
[2023-08-31] MEDS: SITagliptin PHOSPHATE 50 MG TABLET PO (21:14)
[2023-09-01] MEDS: HYDROcodone/acetaminophen (*CRX) 5-325 MG TABLET 1 TAB PO ×3 (01:12→09:00)
[2023-09-01] MEDS: IBUPROFEN 400 MG TABLET PO ×2 (03:16→09:00)
--- NOTE | 2023-09-01 07:30 | PM.GYNPNOP ---
FAMILY PRACTICE PHYSICIAN ASSISTANT - A/P Postoperative Procedures: Procedures Operation Date: 08/30/23 07:30 Actual Procedure Side Surgeon p Total Abdominal Hysterectomy with Bilateral Salpingectomy Bilateral Dalia Woodall MD Postoperative day: 2 Postoperative status: doing well Postoperative plan: routine post-op care Time Spent With Patient Time: Total time spent is greater than 50% in coordination of care (as documented) at patient's floor/unit and/or counseling patient: Time with patient: less than 15 minutes FAMILY PRACTICE PHYSICIAN ASSISTANT- PN:Subj Post-Op Subjective Date/time seen: 09/01/23 07:30 Subjective: patient reports feeling better, patient has no complaints and pain is well controlled Exam Narrative: inc c/d/i abdomen soft, nt FAMILY PRACTICE PHYSICIAN ASSISTANT - PN: Obj Data Vital Signs Vital Signs: Vital Signs - 24 hr 08/31/23 07:40 08/31/23 20:17 Temperature 97.6 F 98.5 F Pulse Rate 71 80 Respiratory Rate 16 18 Blood Pressure 117/58 L 128/81 Pulse Oximetry 100 98 Intake/Output Intake/Output: Intake & Output 08/29/23 08/30/23 08/31/23 09/01/23 23:59 23:59 23:59 23:59 Intake Total 2494.7 1900.30 Output Total 3200 2750 Balance -705.3 -849.70 Meds/Results Medications: Active Medications Generic Name Dose Route Start Last Admin Trade Name Freq PRN Reason Stop Dose Admin Hydrocodone Bitart/Acetaminophen 1 tab 08/30/23 11:50 08/31/23 14:51 Hydrocodone/Acetaminophen (*Crx) 10-325 Mg Tablet PO 1 tab Q3H PRN Administration Pain Rated 6 or Greater Hydrocodone Bitart/Acetaminophen 1 tab 08/30/23 11:50 09/01/23 05:27 Hydrocodone/Acetaminophen (*Crx) 5-325 Mg Tablet PO 1 tab Q3H PRN Administration Pain Rated 5 or Less Ferrous Sulfate 325 mg 08/30/23 17:00 08/31/23 17:32 Ferrous Sulfate [address] BY MOUTH 325 mg BID ASTRID Administration Dextrose/Lactated Ringer's 1,000 mls @ 125 mls/hr 08/30/23 11:50 08/31/23 12:32 Dextrose 5%/Lactated Ringers IV CONT Not Given .Q8H ASTRID Fentanyl Citrate 600 mcg in 30 mls @ 0.5 mls/hr 08/30/23 11:50 08/31/23 06:20 Fentanyl 600 Mcg/Ns 30 Ml Arabic Translator IV CONT Infused PRN PRN Titration [facility]ER Management Protocol 10 MCG/HR Ibuprofen 400 mg 08/30/23 11:50 09/01/23 03:16 Ibuprofen 400 Mg Tablet PO 400 mg Q6H PRN Administration Pain Ketorolac Tromethamine 30 mg 08/30/23 11:50 08/31/23 21:13 Ketorolac 30 Mg/Ml Vial (*[facility]) IV PUSH 09/04/23 11:49 30 mg Q6H PRN Administration Pain Rated 4-6 Metformin HCl 500 mg 08/30/23 17:00 08/31/23 17:32 Metformin Hcl 500 Mg Tablet PO 500 mg BID ASTRID Administration Metoclopramide HCl 10 mg 08/30/23 11:50 08/30/23 13:06 Metoclopramide Hcl Inj 10 Mg/2 Ml Vial IV PUSH 10 mg Q6H PRN Administration Nausea Naloxone HCl 0.1 mg 08/30/23 11:50 Naloxone Hcl 0.4 Mg/Ml Vial IV PUSH Q2M PRN Respiratory rate less than 10 Ondansetron HCl 4 mg 08/30/23 11:50 08/30/23 18:24 Ondansetron Inj 4 Mg/2 Ml Vial IV PUSH 4 mg Q6H PRN Administration Nausea Simethicone 80 mg 08/30/23 12:00 08/31/23 17:32 Simethicone 80 Mg Tab.Chew PO 80 mg TIDWM ASTRID Administration Sitagliptin Phosphate 50 mg 08/30/23 21:00 08/31/23 21:14 Sitagliptin Phosphate 50 Mg Tablet PO 50 mg HS ASTRID Administration Labs 08/31/23 04:10
[2023-09-01 08:25] VITALS: BP 129/71; PULSE 76; RESP 18; TEMP 36.3; O2SAT 100
[2023-09-01] MEDS: SIMETHICONE 80 MG TAB.CHEW PO (09:01)
[2023-09-01] MEDS: metFORMIN HCL 500 MG TABLET PO (09:01)
[2023-09-01] MEDS: FERROUS SULFATE 325 MG TABLET DR BY MOUTH (09:01)
== END 2023-09-01 10:43 | disposition home or self-care (01) | DRG 743 ==
LOC: ANHOB2 11:58
PROVIDERS: Admitting Provider Obstetrics & Gynecology Gynecology; PCP Emergency Medicine; Visit Provider Obstetrics & Gynecology Gynecology
PROC: 0UT94ZZ Resection of Uterus, Percutaneous Endoscopic Approach (ICD-10-PCS; principal; 2023-08-30 07:30)
DX: D25.9 Leiomyoma of uterus, unspecified (principal); N92.1 Excessive and frequent menstruation with irregular cycle; D64.9 Anemia, unspecified; E11.9 Type 2 diabetes mellitus without complications; Z87.891 Personal history of nicotine dependence; Z79.84 Long term (current) use of oral hypoglycemic drugs
CPT/HCPCS: 36415; 82948; 85014; 85018; 85025; 85055; 86850; 86900; 86901; 88307; A9270; J0330; J0690; J1100; J1170; J1885; J2250; J2405; J2704; J2765; J3010; J3410; J7120; J7121

== ENCOUNTER 2024-02-07 15:15 | Outpatient (CLI) | payer OTHER, SELFPAY ==
--- NOTE | ~2024-02-07 | MM_ITS ---
EXAMINATION: MM screening candida BI w anyi HISTORY: Screening TECHNIQUE: Craniocaudal and mediolateral oblique 3-D tomosynthesis images were obtained and synthetic 2-D images were generated. CAD analysis was submitted and interpreted. COMPARISON: 04/07/2021 BREAST PARENCHYMAL COMPOSITION: The breasts are heterogeneously dense, which may obscure small masses . FINDINGS: Punctate calcifications detected bilaterally, stable and benign in appearance. Stable parenchymal pattern without suspicious microcalcifications, architectural distortion, discrete masses or significant asymmetry. IMPRESSION: 1. No mammographic evidence of malignancy. 2. Recommend routine screening mammography in one year. BI-RADS Category 2: Benign finding(s). Reviewed, dictated and finalized at location A. [employer] TRAV[employer] AGENT
== END 2024-02-07 15:16 | disposition home or self-care (01) ==
LOC: MICIMG 15:15
PROVIDERS: PCP Emergency Medicine; Visit Provider Obstetrics & Gynecology Gynecology
DX: Z12.31 Encounter for screening mammogram for malignant neoplasm of breast (principal)
CPT/HCPCS: 77063; 77067